=== PATIENT | female | born 2000 | race Caucasian/White ===

== ENCOUNTER 2022-03-11 22:53 | Emergency (ER) | payer OTHER ==
[~2022-03-11 22:53] MED LIST: COLACE 100MG C100 MG PO; IBUPROFEN600 MG PO; LORTAB 5-325 M1 EACH PO
[2022-03-12 03:47] LABS: HEMOGLOBIN 13.1 gm/dl (12.3-15.3); RED BLOOD COUNT 4.57 M/UL (4.00-5.10); WHITE BLOOD COUNT 8.5 K/UL (4.5-11.0)
[2022-03-12 04:13] LABS: BUN/CREATININE RATIO 11 (0-10)
[2022-03-12] MEDS ORDERED: ONE-A-DAY PREN1 EAC1 PO (05:02)
== END 2022-03-12 05:50 | disposition home or self-care (01) ==
LOC: ER1 22:53
PROVIDERS: Family Medicine
DX: O9A.211 Injury, poisoning and certain other consequences of external causes complicating pregnancy, first trimester (principal); S10.93XA Contusion of unspecified part of neck, initial encounter; T74.11XA Adult physical abuse, confirmed, initial encounter; Z3A.01 Less than 8 weeks gestation of pregnancy; Y04.8XXA Assault by other bodily force, initial encounter
CPT/HCPCS: 70450; 80053; 84702; 85025; 99284

== ENCOUNTER 2022-06-30 20:33 | Outpatient (CLI) | payer OTHER ==
[~2022-06-30 20:33] MED LIST changes: +ONE-A-DAY PREN1 EAC1 PO
== END 2022-06-30 22:11 | disposition home or self-care (01) ==
LOC: GENOP 20:33
DX: Z53.9 Procedure and treatment not carried out, unspecified reason (principal)
CPT/HCPCS: 81001; 84703; G0463